=== PATIENT | female | born 1975 | race Caucasian/White ===

== ENCOUNTER 2025-01-28 13:43 | Emergency (ER) | payer OTHER, SELFPAY ==
[2025-01-28 13:51] VITALS: BP 164/108
[2025-01-28 14:19] LABS: % Basophils 0.7 % (0-2); % Eosinophils 1.1 % (0-6); % Immature Granulocytes 0.2 % (0-0.5); % Lymphocytes 29.1 % (20.5-51.1); % Monocytes 10.5 % (1.7-9.3); % Neutrophils 58.4 % (42.2-75.2); Absolute Basophils 0.1 10^3/uL (0-0.2); Absolute Eosinophils 0.1 10^3/uL (0-0.7); Absolute Lymphocytes 2.7 10^3/uL (1.2-3.4); Absolute Neutrophils 5.5 10^3/uL (1.4-6.5); Hematocrit 33.9 % (37.0-47.0); Hemoglobin 10.7 g/dL (12.0-16.0); Mean Corp Hgb Conc. 31.6 g/dL (33.0-37.0); Mean Corpuscular Hgb 24.9 pg (27.0-31.0); Mean Corpuscular Volume 78.8 fL (81.0-99.0); Mean Platelet Volume 10.2 fL (7.4-10.4); Nucleated Red Blood Cells % 0 %; Platelet Count 414 10^3/uL (130-400); Red Cell Dist. Width 15.5 % (11.5-14.5); White Blood Cell Count 9.4 10^3/uL (4.8-10.8)
[2025-01-28 14:42] LABS: ALT (SGPT) 26 U/L (0-35); AST (SGOT) 21 U/L (14-36); Albumin 4.1 g/dl (3.5-5.0); Alkaline Phosphatase 92 U/L (38-126); Blood Urea Nitrogen 19 mg/dl (7-17); Calcium 9.3 mg/dl (8.4-10.2); Carbon Dioxide 23 mmol/L (22-30); Chloride 107 mmol/L (98-107); Glucose 82 mg/dl (70-99); Potassium 4.4 mmol/L (3.5-5.1); Sodium 139 mmol/L (135-145); Total Bilirubin 0.4 mg/dl (0.2-1.3); Total Protein 7.1 g/dl (6.3-8.2); eGFR > 60.00
[2025-01-28 15:11] LABS: TSH Reflex To Free T4 0.98 uIU/ml (0.47-4.68)
--- NOTE | 2025-01-28 16:23 | ED.GENMED ---
History of Present Illness
General
Chief Complaint: Heart Rate Problem
Source: patient
Exam Limitations: none
Time Seen by Provider: 01/28/25 16:01
Nursing documentation reviewed up to this point in time: agreed with
History of Present Illness
History of Present Illness:
pt is a 49 y/o F with no sig pmh
here after suddenly developing fast HR 180s at 1230 pm when she picked up her dogs. pt says she felt a little anxious at first and just figured she was anxious and then realized she didn't feel right, went home and felt a little lightheaded and
took bp 170/80 and hr 180
she decided to come to the ER and on the way here noticed it felt better
she had no chest pain, sob, syncope, vomiting
pt says she feels totally inormal now
she has not had any DVT/PE rf
she has never had this before
no caffeine today, no alcohol, no smoking, no stimulants, no change to diet, no h/o dysrhythmia
lmp 4 days ago
Past History
Past History
ED Past Medical History: Other (Kidney stones); Negative Asthma, HTN, Hypercholesterolemia or NIDDM
ED Past Surgical History: Appendectomy and Cholecystectomy
Social History
Tobacco: Non-smoker
Alcohol: None
Drug: None
Personal:
Living: with family
Employment: Employed
Review of Systems
Review of Systems
Allergies reviewed?: Yes
All Other Systems: Not applicable
Phy Exam
Physical Exam
Physical Exam:
GENERAL: Alert , in no apparent distress
EYE: pupils equal and reactive
NECK: Supple
ENT: o/p clr, mmm.
CARDIAC: Regular rate and rhythm .
LUNGS: Clear breath sounds bilaterally, no acute respiratory distress, no wheezes/rales/rhonchi
ABDOMEN: Soft, without focal tenderness, no r/g, no cvat, normal bowel sounds
NEUROLOGICAL: Alert and oriented, no focal neuro deficits
SKIN: Warm and dry, skin intact.
MUSCULOSKELETAL: No edema, well perfused. neg claudia's sign
PSYCH: Normal and appropriate interaction.
Scores
[id number] Score for Afib Stroke Risk
Age in Years (65=0, 65-74=1, >/=75=2): <65
Sex (Female=+1): Female
Congestive Heart Failure History (Yes=+1): No
Hypertension History (Yes=+1): No
Stroke/TIA/Thromboembolism History (Yes=+2): No
Vascular Disease History (Yes=+1): No
Diabetes Mellitus (Yes=+1): No
Score: 1
Anticoagulation Recommendations: Consider anticoagulation (as validated in nonvalvular fib)
Course
Orders/Labs/Results
Orders:
Orders
01/28/25 13:44
Electrocardiogram (*1) Urgent
Reason for Study: Palpitations
EKG- Treatment ONCE
01/28/25 14:04
Complete Blood Count/With Diff Urgent
TSH Reflex To Free T4 Urgent
01/28/25 14:05
Comprehensive Metabolic Panel Urgent
Abnormal Lab Results
01/28/25 01/28/25
14:04 14:05
Hgb 10.7 L g/dL
(12.0-16.0)
Hct 33.9 L %
(37.0-47.0)
MCV 78.8 L fL
(81.0-99.0)
MCH 24.9 L pg
(27.0-31.0)
MCHC 31.6 L g/dL
(33.0-37.0)
RDW 15.5 H %
(11.5-14.5)
Plt Count 414 H 10^3/uL
(130-400)
Absolute Monos (auto) 1.0 H 10^3/uL
(0.1-0.6)
Monocytes % 10.5 H %
(1.7-9.3)
BUN 19 H mg/dl
(7-17)
01/28/25 14:04
01/28/25 14:05
Vital Signs
Pulse: 89
Blood pressure: 151/87
Initial and Last Documented VS:
Initial Vital Signs
Temp Pulse Resp BP Pulse Ox
37.1 C 100 20 164/108 98
01/28/25 13:51 01/28/25 13:51 01/28/25 13:51 01/28/25 13:51 01/28/25 13:51
Last Documented Vital Signs
Temp Pulse Resp BP Pulse Ox
37.1 C 89 20 151/87 98
01/28/25 13:51 01/28/25 17:10 01/28/25 13:51 01/28/25 17:10 01/28/25 13:51
MDM/Problems Addressed
Differential Diagnosis Includes:
SVT, A-fib and rapid, sinus tachycardia, anxiety
MDM/Problems Addressed:
49-year-old female pretty healthy says she spontaneously developed a feeling of anxiousness today around 1230. She says she did not feel quite right but was not feeling chest pain or shortness of breath. She got home about an hour later and took
her vital signs and her blood pressure was little high 170/80 and her heart rate was in the 180s. Around 1:30 PM symptoms completely resolved while she was on the way here. She has never had any chest pain or shortness of breath. Patient feels
fine here. There is no stimulants, caffeine, alcoholism. She is not dehydrated., There is no history of thyroid disease. On exam the patient has a heart rate of 89, blood pressure 150/80, EKG showingSinus tachycardia 107 which was taken before I
saw her with her heart rate in the 80s
Her labs show that her BUN was only minimally elevated
Her hemoglobin is 10.7. I will recommend that she follow-up with her primary care doctor and start a multivitamin with iron. I also recommend following up for a Holter monitor. Return precautions given
*Critical Care Note
Total Time (30-74mins, 75-104mins- exclusive of procedures): Not Applicable
ED Attending Note
-
Portions of this chart may have been created with voice recognition software.� Occasional wrong word or��sound alike� substitutions may have occurred due to the inherent limitations of voice recognition software.
Discharge Plan
Departure
Patient Disposition: Home (Routine Discharge)
Date of Disposition: 01/28/25
Time of Disposition: 17:08
Patient with high blood pressure during this ER visit?: Yes
Condition: Fair
Covid-19: Not Applicable
Discharge Problem:
Tachycardia
Instructions: Tachycardia
Prescriptions:
No Action
sulfamethoxazole-trimethoprim 1 TABLET tablet
1 tab PO BID Qty: 14 0RF
Referrals:
John Zhang MD [Active] - Follow up in 1 week (cards)
NONE,* [Family Provider] -
Activity Restrictions/Additional Instructions:
We are not sure what your heart rhythm was before you got here but it was a sinus tachycardia on arrival and you resolved to a normal sinus rhythm. Your electrolytes were good. You are only minimally anemic with a hemoglobin of 10.7. Try taking a
multivitamin with iron. Stay hydrated. Avoid caffeine and stimulants for few days. Follow-up with cardiology as an outpatient and your family doctor as well. Return immediately for onset of symptoms again, passing out, chest pain or shortness of
breath etc.
Interventions
Interventions:
*Risk Screen - Suicide Last Done: 01/28/25 13:51
*Nursing Disposition Last Done: 01/28/25 17:42
Discharge Date and Time
Discharge Date/Time: 01/28/25 17:42
Print Language: CHINESE
== END 2025-01-28 17:42 | disposition home or self-care (01) ==
LOC: EMR 13:43
PROVIDERS: Student in an Organized Health Care Education/Training Program; EMERGENCY PHYSICIAN Student in an Organized Health Care Education/Training Program
DX: R00.0 Tachycardia, unspecified (principal); Z87.442 Personal history of urinary calculi; Z90.49 Acquired absence of other specified parts of digestive tract
CPT/HCPCS: 99283; 80053; 84443; 85025; 93005